=== PATIENT | male | born 1945 | race Caucasian/White ===

== ENCOUNTER → 2020-06-20 | Outpatient (CLI) | payer OTHER ==
[2020-06-20 10:34] LABS: URINE BILIRUBIN NEGATIVE (Negative); URINE BLOOD 1+ (Negative); URINE CLARITY CLEAR; URINE COLOR YELLOW; URINE GLUCOSE-RANDOM* NEGATIVE (Negative); URINE KETONES NEGATIVE (Negative); URINE LEUKOCYTES NEGATIVE (Negative); URINE NITRITE NEGATIVE (Negative); URINE PROTEIN (DIPSTICK) 2+ (Negative); URINE UROBILINOGEN 0.2 E.U./dl (0.2-1.0)
[2020-06-20 10:52] LABS: CASTS None Seen /LPF (None Seen); SQUAMOUS 0-3 Few /LPF (0-3)
[2020-06-20 10:53] LABS: BACTERIA None Seen /HPF (None Seen); CRYSTALS None Seen /LPF (None Seen); URINE RBC 0-2 Rare /HPF (0-2); URINE WBC 0-5 Rare /HPF (0-5)
[2020-06-20 11:08] LABS: ALBUMIN 3.8 g/dL (3.4-5.0); CALCIUM 9.3 mg/dL (8.5-10.1); CREATININE 2.1 mg/dL (0.7-1.3); POTASSIUM 4.3 mmol/L (3.5-5.1); TOTAL BILIRUBIN 0.6 mg/dL (0.2-1.0); TOTAL PROTEIN 7.2 g/dL (6.4-8.2)
--- NOTE | 2020-06-20 11:47 | 2DMMODE ---
[facility] [place] [address] [place] [address] 2 D/M-MODE ECHOCARDIOGRAM Name: DANIEL MOEN Room #: REG [facility]#: [id number] Admission: 06/20/20 Attend Phys: Jerson Pascual MD Discharge: Date of : 49 Report #: [id number] THIS REPORT FOR: cc: Jerson Pascual MD,Jerson Hernandez,Miles MISHRA [facility] ~ APPROVED REPORT Study performed: 06/20/2020 11:01:57 EXAM: Comprehensive 2D, Doppler, and color-flow Echocardiogram Patient Location: Out-Patient Status: routine BSA: 2.17 HR: 68 bpm BP: 136/84 mmHg Rhythm: Atrial Fibrillation Other Information Study Quality: Adequate Technically limited study due to body habitus. Indications LV function. [place]. Hx: Pacemaker, HTN, HLP, DM, obesity. 2D Dimensions RVDd: 43.76 mm IVSd: 14.20 (7-11mm) LVOT Diam: 20.28 (18-24mm) LVDd: 52.00 mm PWd: 12.38 (7-11mm) Ascending Ao: 34.87 (22-36mm) LVDs: 38.75 (25-40mm) Aortic Root: 36.37 mm Volumes Left Atrial Volume (Systole) Single Plane 4CH: 125.98 mL Single Plane 2CH: 105.57 mL LA ESV Index: 57.00 mL/m2 Aortic Valve AoV Peak Madi.: 1.26 m/s AO Peak Gr.: 6.36 mmHg LVOT Max P.67 mmHg LVOT Max V: 0.96 m/s [facility] [email or web address] [place] [address] 2 D/M-MODE ECHOCARDIOGRAM Name: DANIEL MOE Room #: REG CL [facility]#: [id number] Admission: 06/20/20 Attend Phys: Jerson Pascual MD Discharge: Date of : 49 Report #: [id number] Vmax: 2.45 cm2 Mitral Valve MV Decel. Time: 164.10 ms MV E Max Madi.: 0.74 m/s Pulmonary Valve PV Peak Madi.: 0.84 m/s PV Peak Gr.: 2.85 mmHg Tricuspid Valve TR Peak Madi.: 2.62 m/s RAP Estimate: 5.00 mmHg TR Peak Gr.: 27.43 mmHg PA Pressure: 32.00 mmHg Left Ventricle The left ventricle is normal size. There is normal LV segmental wall motion. Moderate basal septal hypertrophy is present. Left ventricular systolic function is normal. LVEF is 55%. This study is not technically sufficient to allow evaluation of the LV diastolic function due to atrial fibrillation. Right Ventricle Right ventricle is mildly dilated. The right ventricular systolic function is normal. Atria Left atrium is severely dilated. Right atrium is moderately dilated. Aortic Valve The aortic valve is normal in structure. No aortic regurgitation is present. There is no aortic valvular stenosis. Mitral Valve The mitral valve is normal in structure. Mild mitral regurgitation. No evidence of mitral valve stenosis. Tricuspid Valve The tricuspid valve is normal in structure. Mild to moderate tricuspid regurgitation. Estimated PAP is 30-35mmHg. Pulmonic Valve The pulmonary valve is normal in structure. Trace pulmonic regurgitation. [place] [facility] [address] [place] [address] 2 D/M-MODE ECHOCARDIOGRAM Name: ABHIDANIEL AMANDA Room #: REG [facility]#: [id number] Admission: 06/20/20 Attend Phys: Jerson Pascual MD Discharge: Date of : 49 Report #: [id number] The aortic root is normal in size. The ascending aorta is normal in size. IVC is normal in size and collapses >50% with inspiration. Pericardium There is no pericardial effusion. <Conclusion> Normal left ventricular size, moderate septal hypertrophy Preserved ejection fraction EF of 55% No obvious segmental wall motion abnormality Moderate/severe left atrial enlargement Moderate right atrial enlargement Right ventricle mildly dilated, normal systolic function Mild central mitral valve insufficiency Trace of tricuspid valve insufficiency Pulmonary artery systolic pressure estimated 30 mmHg No pericardial effusion <ELECTRONICALLY SIGNED> By: Miles Hernandez MD, [facility] 06/20/20 1146 1146 1146 Miles Hernandez MD, FACC /INF
== END ==
LOC: CV 09:50
PROVIDERS: ATTEND Orthopaedic Surgery
DX: I08.1 Rheumatic disorders of both mitral and tricuspid valves (principal); I25.9 Chronic ischemic heart disease, unspecified; I10 Essential (primary) hypertension; Z90.5 Acquired absence of kidney